=== PATIENT | female | born 1980 | race Two or more races ===

== ENCOUNTER 2025-05-13 10:20 | Day surgery (SDC) | payer MEDICAID, SELFPAY ==
[2025-05-12 08:54] VITALS: BMI 37.5
[2025-05-12 10:08] LABS: Basophils # (Auto) 0.0 Thou/mm3 (0.0-0.2); Basophils % (Auto) 1 % (0-2.5); Eosinophils # (Auto) 0.2 Thou/mm3 (0.0-0.5); Eosinophils % (Auto) 4 % (0-10); Hematocrit 35.6 % (36.0-46.0); Hemoglobin 11.5 g/dL (12.0-16.0); Immature Granulocytes Auto 0.04 Thou/mm3 (0.00-0.00); Lymphocytes # (Auto) 2.0 Thou/mm3 (1.0-4.8); Lymphocytes % (Auto) 29 % (10-50); Mean Corpuscular HGB Conc 32.3 g/dl (31.0-37.0); Mean Corpuscular Hemoglobin 27.3 pg (25.0-35.0); Mean Corpuscular Volume 84 fL (80-100); Monocytes # (Auto) 0.7 Thou/mm3 (0.0-0.8); Monocytes % (Auto) 10 % (0-12); Neutrophils # (Auto) 3.9 Thou/mm3 (1.8-7.7); Neutrophils % (Auto) 57 % (37-80); Nucleated Red Blood Cell # 0.00 Thou/mm3 (0.00-0.00); Nucleated Red Blood Cell % 0 /100 WBC (0); Platelet Count 338 Thou/mm3 (140-440); RDW Standard Deviation 45.1 fL (36.4-46.3); Red Blood Count 4.22 Miln/mm3 (4.00-5.20); White Blood Count 7.0 Thou/mm3 (3.6-11.0)
[2025-05-12 10:16] LABS: Anion Gap 7 (7-16); BUN/Creatinine Ratio 16 Ratio (12-20); Blood Urea Nitrogen 11 mg/dL (9-23); Calcium 8.9 mg/dL (8.3-10.6); Carbon Dioxide 26.1 mMol/L (20.0-31.0); Chloride 106 mMol/L (98-107); Creatinine (Component) 0.7 mg/dL (0.6-1.3); Estimated Creatinine Clearance 95.5 mL/min (>60); Glucose 114 mg/dL (74-106); INR 1.0 (0.9-1.3); Osmolality,Calculated 277 (275-295); Partial Thromboplastin Time 27.6 Seconds (22.0-36.0); Potassium 4.2 mMol/L (3.4-5.1); Prothrombin Time 10.9 Seconds (9.0-12.2); Sodium 139 mMol/L (136-145); eGFR > 60 See Note
--- NOTE | 2025-05-12 14:12 | SUR.PREOP ---
Pt notified to come in at 1030 tomorrow for surgery.
[2025-05-13] VITALS (7 sets, daily range): BP systolic 102–133; BP diastolic 61–88; PULSE 67–79; RESP 13–20; TEMP 36.6–37.1; O2SAT 97–99; BMI 36.9
--- NOTE | 2025-05-13 10:48 | SUR.PREOP ---
Patient expressed gratitude for prayer before their procedure.
--- NOTE | 2025-05-13 14:03 | SUR.PHASEI ---
pt received from OR in recovery bay 3. pt obtunded, breathing unlabored on oxymask 4l, oral airway in place. v/s stable. pt dressing to left hand cdi. report received from Dr. Rodriguez and Toney GOTTLIEB.
--- NOTE | 2025-05-13 14:09 | PD.SUROPNT ---
Date of Procedure 05/13/25 Pre Op Diagnosis Trigger left thumb Post Op Diagnosis Same Procedure Release of trigger left thumb Findings Patient has significant thickening of the flexor sheath. While moving the thumb the tendon was getting stuck to the flexor sheath. Procedure Description The patient was given general endotracheal anesthesia. Once satisfactory anesthesia achieved a tourniquet was placed on left upper arm. Following that the part was thoroughly prepped and draped. After using Esmarch the tourniquet pressure was raised to 250 mmHg Skin incision was placed just proximal to the metacarpal phalange joint crease. Deeper dissection was carried out. The distal nerve was identified and was protected all along. The flexor tendon with the sheath was exposed. With the knife a gentle stab incision was made in the sheath and with the help of scissors it was extended proximally and distally. A strip of the sheath was then excised so that it does not reform. The the thumb was then moved and tendon was moving freely Wound was irrigated with antibiotic solution every 4-5 Closure was done with the help of 3-0 nylon. Interrupted sutures was placed. 10 mL of quarter percent Marcaine was injected at the skin incision site After cleaning the wound Stri-Dex was applied Patient tolerated procedure very well. Estimated blood loss 1 mL. Prognosis in this case is fair to good Anesthesia GETA Pathology / specimen None Estimated Blood Loss 1 Surgeon Jose Alfredo Vergara MD Surgical Staff Operation Date: 05/13/25 12:40 Case Staff Anesthesiologist: Pradip Rodriguez
--- NOTE | 2025-05-13 14:26 | SUR.PHASEI ---
pt able to tolerate oral fluids without difficulty swallowing or nausea/vomiting.
--- NOTE | 2025-05-13 15:09 | SUR.PHASEII ---
pt awake and alert, breathing unlabored on room air. v/s stable. pt dressing to left hand cdi. pt able to ambulate to wheelchair with steady gait. d/c instructions given with daughter Nilson in room, all questions answered. pt d/c via wheelchair with all belongings.
--- NOTE | 2025-05-13 17:21 | ESHP_ITS ---
RE: PINKY BAJWA : 1980 DATE OF ADMISSION: 05/13/2025 HISTORY AND PHYSICAL: The patient came to my office earlier for detailed preop history and physical examination. The patient has got locking of the left thumb, which is going on for quite a few years. However, the last few months are extremely painful. It gets locked and then snaps before she could extend it. This is affecting quality of life. Intensity of pain is graded as 8-9/10. PAST MEDICAL HISTORY: No history of diabetes mellitus, high blood pressure, asthma, seizure, chest pain, myocardial infarction, or bleeding disorder. PAST SURGICAL HISTORY: Nil. DRUG HISTORY: Pain medication on and off. ALLERGIES: NIL KNOWN. FAMILY HISTORY AND SOCIAL HISTORY: Noncontributory. PHYSICAL EXAMINATION: VITAL SIGNS: Normal weight lady. Pulse is 76 per minute. Blood pressure is 120/76. NECK: Soft, supple. No mass felt. Trachea is centrally placed. CARDIOVASCULAR SYSTEM: First and second heart sounds normal. No murmur heard. RESPIRATORY SYSTEM: Bilateral vesicular breath sounds. CHEST: Clear. ABDOMEN: Soft. No mass felt. Bowel sounds present. BREAST: Examination not indicated in this case. RECTAL: The patient is advised to see the family physician for rectal examination. EXTREMITIES: Left hand and thumb examination revealed tenderness at the metacarpophalangeal joint. There was mild swelling, which was quite tender. Range of motion was tested and the thumb gets locked before extending with snap and is a painful experience for the patient. Clinically, the patient has triggered left thumb. DIAGNOSES: Prognosis was explained. With the help of posters and diagram, the diagnosis was explained. Surgical intervention was discussed. Detailed discussion took place. All questions were answered. Risks with anesthesia was explained and that includes, but not limited to reaction to anesthetic agents, cardiac arrest and rarely it might be fatal. Risks with operation includes infection and if that happens, the patient may need further surgical procedure. Other risks include delayed healing, wound dehiscence, etc. No guarantee is given regarding the outcome of the procedure. Sometimes there is a possible damage to the nerve and if that happens, the patient may feel numbness in the thumb. The patient wants to proceed surgery. Surgery booked for 05/13/2025. Appropriate lab was done. DT: 16:47:40 TT: 17:19:00 Ref: [id number] - TID: [id number]
== END 2025-05-13 15:09 | disposition home or self-care (01) ==
PROVIDERS: Orthopaedic Surgery; PCP Physician Assistant; Referring Provider Orthopaedic Surgery; Visit Provider Orthopaedic Surgery
PROC: (CPT 26055; principal; 2025-05-13 12:30)
DX: M65.312 Trigger thumb, left thumb (principal)
CPT/HCPCS: 26055; 36415; 80048; 85025; 85610; 85730; A4217; A4649; J1100; J1580; J1885; J2405; J2704; J3010; J3490; J0665

== ENCOUNTER → 2025-05-23 | Outpatient (CLI) | payer MEDICAID, SELFPAY ==
--- NOTE | 2025-05-23 13:15 | XR_ITS ---
Examination: Screening digital mammography, bilateral Computer aided detection 3-D breast Tomosynthesis, bilateral Date and time of exam: May 23 2025 1307 hours Compared to mammograms dating to March 02, 2024 Indication: Screening Technique: Nonmagnified MLO, CC views of the breasts to been obtained, reconstructed from 3-D Tomosynthesis images. R2 computer aided detection program utilized for evaluation of suspicious masses and/or abnormal calcifications. 3-D Tomosynthesis images obtained. Findings: Scattered areas of fibroglandular density Benign calcifications No interval suspicious masses Impression: BI-RADS category II: Benign Findings. Recommend 1 year follow-up mammogram.
== END | disposition home or self-care (01) ==
PROVIDERS: PCP Physician Assistant; Referring Provider Physician Assistant; Visit Provider Physician Assistant
DX: Z12.31 Encounter for screening mammogram for malignant neoplasm of breast (principal); R92.323 Mammographic fibroglandular density, bilateral breasts; R92.1 Mammographic calcification found on diagnostic imaging of breast
CPT/HCPCS: 77063; 77067